=== PATIENT | male | born 1980 | race Caucasian/White ===

== ENCOUNTER 2017-11-04 14:55 | Emergency (ER) | payer MEDICAID ==
[2017-11-04] MEDS: HYDROmorphONE 1 MG/5 ML IV SYRINGE IV ×2 (16:42→18:01)
[2017-11-04] MEDS: SOD CHLORIDE 0.9% 1,000 ML IV (16:44)
[2017-11-04] MEDS: ONDANSETRON 4 MG INJ IV (16:48)
[2017-11-04 16:51] LABS: ADD MAN DIFF? NO
[2017-11-04 16:52] LABS: WHITE BLOOD COUNT 6.9 10^3/ul (4.8-10.8)
[2017-11-04 16:52] LABS: BASOPHIL # 0.1 10^3/ul (0.0-0.1); BASOPHILS % 0.7 % (0.0-2.0); EOSINOPHILS # 0.2 10^3/ul (0.0-0.5); EOSINOPHILS % 2.5 % (0.0-7.0); HEMATOCRIT 46.8 % (42.0-52.0); HEMOGLOBIN 16.2 g/dl (14.0-18.0); LYMPHOCYTES # 1.8 10^3/ul (0.8-2.9); LYMPHOCYTES % 26.4 % (15.0-51.0); MEAN CORPUSCULAR HEMOGLOBIN 32.3 pg (29.0-33.0); MEAN CORPUSCULAR HGB CONC 34.6 g/dl (32.0-37.0); MEAN CORPUSCULAR VOLUME 93.4 fl (82.0-101.0); MEAN PLATELET VOLUME 8.9 fl (7.4-10.4); MONOCYTE # 0.6 10^3/ul (0.3-0.9); MONOCYTES % 9.1 % (0.0-11.0); NEUTROPHIL # 4.2 10^3/ul (1.6-7.5); PLATELET COUNT 271 10^3/UL (140-415); RED BLOOD COUNT 5.01 10^6/ul (4.70-6.10); RED CELL DISTRIBUTION WIDTH 11.9 % (11.5-14.5)
[2017-11-04 17:21] LABS: ANION GAP 15 (8-16); BLOOD UREA NITROGEN 7 mg/dl (7-20); CALCIUM 9.4 mg/dl (8.4-10.2); CARBON DIOXIDE 27 mmol/L (21-31); CHLORIDE 102 mmol/L (97-110); CREATININE 1.05 mg/dl (0.61-1.24); GLUCOSE 90 mg/dl (70-220); POTASSIUM 3.8 mmol/L (3.5-5.1); SODIUM 140 mmol/L (135-144)
[2017-11-04 17:44] LABS: TROPONIN-I < 0.012 ng/ml (0.000-0.120)
[2017-11-04] MEDS: LORAZEPAM 1 MG TAB PO (18:01)
== END 2017-11-04 18:42 | disposition home or self-care (01) ==
LOC: FTE 14:55
DX: R55 Syncope and collapse (principal); F41.9 Anxiety disorder, unspecified
CPT/HCPCS: 36415; 70450; 80048; 84484; 85025; 93005; 96374; 96375; 96376; 99285-25